=== PATIENT | female | born 1960 | race Caucasian/White ===

== ENCOUNTER 2016-09-12 08:33 | Emergency (ER) | payer BC ==
[~2016-09-12] VITALS: Ht 167.6 cm; Wt 82.7 kg
[2016-09-12 08:36] VITALS: TEMP 36.4; Ht 167.6 cm; Wt 82.7 kg
[2016-09-12] MEDS ORDERED: SODIUM CHLORIDE 0.9% 1000ML 1,000 ML IV STA (08:54)
[2016-09-12 09:09] LABS: MEAN CORPUSCULAR HEMOGLOBIN 31.8 pg (25-34); MEAN CORPUSCULAR HGB CONC 33.5 g/dl (32-36); MEAN PLATELET VOLUME 10.4 fL (7.4-10.4); PLATELET COUNT 340 K/uL (130-400); RED BLOOD COUNT 3.58 M/uL (4.2-5.4); WHITE BLOOD COUNT 14.13 K/uL (4.8-10.8)
[2016-09-12] MEDS ORDERED: ONDANSETRON INJ 2 MG/ML 2 ML VIAL IV STA (09:13)
[2016-09-12] MEDS ORDERED: MoRPHine SULFATE 4 MG/ML 1 ML CARP\\VIAL IV STA ×2 (09:13→11:41)
[2016-09-12] MEDS ORDERED: OPTIRAY 320 IV PRN (09:15)
[2016-09-12 09:16] LABS: PARTIAL THROMBOPLASTIN RATIO 0.9; PROTHROMBIN TIME (PATIENT) 10.5 SECONDS (9.0-12.0)
[2016-09-12] MEDS ORDERED: ASPI81TA28 PO (09:24)
[2016-09-12] MEDS ORDERED: CETI10TA84 PO (09:24)
[2016-09-12] MEDS ORDERED: LUTE6CAP (09:24)
[2016-09-12] MEDS ORDERED: CITA40TA4 PO (09:24)
[2016-09-12] MEDS ORDERED: PRAV20TA PO (09:24)
[2016-09-12] MEDS ORDERED: METO25TA3 PO (09:24)
[2016-09-12] MEDS ORDERED: TRAZ100T29 PO (09:24)
[2016-09-12] MEDS ORDERED: FOLI1TAB7 PO (09:24)
[2016-09-12 09:26] LABS: BUN/CREATININE RATIO 14.6 (10-20); CALCIUM 8.6 mg/dl (8.5-10.1); CREATININE 0.84 mg/dl (0.60-1.20); MAGNESIUM 2.2 mg/dl (1.8-2.4)
[2016-09-12 09:30] LABS: PHOSPHORUS 2.9 mg/dl (2.5-4.9)
[2016-09-12 09:38] LABS: COMPLETE YES; DOHLE BODIES 1+; LYMPH ABS # 2.25 K/uL (1.2-3.4); LYMPHOCYTE % 15.9 %; MYELOCYTE % 0.9 %; NEUTROPHILS % 70.8 %; TOXIC GRANULATION 1+
--- NOTE | 2016-09-12 10:33 | DIAGNOSTIC IMAGING REPORT ---
CT SCAN OF THE ABDOMEN AND PELVIS WITH IV CONTRAST CLINICAL HISTORY: Left lower quadrant abdominal pain. Hematochezia. COMPARISON STUDY: No priors. TECHNIQUE: Following the IV administration of 119 cc of Optiray 320, CT scan of the abdomen and pelvis is performed from the lung bases to the proximal femora. Images are reviewed in the axial, sagittal, and coronal planes. IV contrast was administered without complication. Automated dose control exposure was utilized. CT DOSE: 547.92 mGy.cm FINDINGS: Lung bases: The heart is normal in size and without pericardial effusion. There are scattered coronary artery calcifications. Emphysema is suspected. Lung bases are otherwise clear noting dependent atelectasis. Liver: The contrast-enhanced liver is significantly enlarged, measuring 23.5 cm in length. The liver demonstrates diffusely diminished attenuation consistent with severe hepatic steatosis. Foci of geographic sparing are present adjacent to gallbladder fossa and the right lobe. There is no intrahepatic biliary ductal dilatation. The hepatic veins and portal veins are patent. 1.9 cm and 1.1 cm hyperdense foci in the right lobe seen on images #134 and 140 may represent hemangiomas or foci of geographic sparing. Gallbladder: Unremarkable. Spleen: Normal in size and attenuation. Pancreas: Unremarkable. Adrenal glands: Unremarkable. Kidneys: The contrast enhanced kidneys demonstrate mild cortical atrophy and are without hydronephrosis. The kidneys enhance symmetrically. Abdominal vasculature: The abdominal aorta is normal in course and caliber noting moderate atherosclerotic calcification. Bowel: There is mild to moderate diverticulosis of the sigmoid colon without CT evidence of acute diverticulitis. There is a long segment of wall thickening, edema, and hyperemia involving the colon. This extends from the mid transverse colon to the distal descending colon and is typical for a nonspecific colitis. There is associated pericolonic inflammatory change and trace pericolonic fluid. There are mildly enlarged pericolonic lymph nodes. No bowel obstruction is seen. The appendix is well-visualized and normal. Peritoneum: There is no intraperitoneal free air or abdominal ascites. There is a small fat-containing umbilical hernia. Lymphadenopathy: None. Pelvic viscera: Large enhancing uterine masses are typical in appearance for fibroids. These measure up to 4.4 cm. The bladder is normal as visualized. No adnexal lesion is seen. Skeletal structures: The skeletal structures are osteopenic. There is minimal lumbosacral spondylosis. A hemitransitional right lumbosacral segment is incidentally noted. No lytic or blastic lesions are seen. IMPRESSION: 1. Findings are consistent with a nonspecific colitis involving the transverse and descending colon as above. This is likely on an infectious or inflammatory basis in this age group. Clinical correlation will be required. 2. Hepatomegaly and severe hepatic steatosis. 3. Suspect emphysema. 4. Mild to moderate sigmoid diverticulosis without CT evidence of acute acute diverticulitis. 5. There are hypervascular uterine masses measured up to 4.4 cm. These are pathologically indeterminant but typical in appearance for fibroids. 6. There are 2 hyperdense foci in the liver measuring up to 1.9 cm. These likely represent hemangiomas or geographic fatty sparing but are incomplete characterized. These are of doubtful significance if there is no cancer history. 7. Additional findings as above. Electronically signed by: Leroy Khan M.D. 09/12/2016 10:32 AM Dictated Date/Time: 09/12/2016 10:24 AM
[2016-09-12] MEDS ORDERED: OMEP20CA59 PO (11:13)
[2016-09-12] MEDS ORDERED: PRED50TA PO (11:13)
[2016-09-12] MEDS ORDERED: MoRPHine SULFATE 4 MG/ML 1 ML CARP\\VIAL ONE (11:28)
[2016-09-12 11:41] VITALS: BP 108/63; PULSE 97; O2SAT 93
--- NOTE | 2016-09-12 13:58 | EMERGENCY ROOM VISIT NOTE ---
History First contact with patient: 08:53 Chief Complaint: RECTAL BLEEDING Stated Complaint: HEAVY BLEEDING/RECTUM Nursing Triage Summary: PMH of colitis. She relates that this episode is her worst. She has been defecating "all blood". Pain is in the left lower quadrant. Feels dizzy with position changes. History of Present Illness The patient is a 55 year old female who presents to the Emergency Room with complaints of significant rectal bleeding, weakness, fatigue and lightheadedness. The patient reports a long-standing history of ulcerative colitis. She has recently been managed by [facility]. The patient reports that she has noticed blood in her stool for the past 2 weeks. For the first few days, it was bright red in appearance, and is now dark. The patient reports that she was seen at the [place] emergency department on Friday, and given a prescription for prednisone 40 mg daily for 4 days. The patient now reports worsening bleeding with worsening symptoms, including left lower quadrant pain. The patient denies any known history of diverticulosis. The patient denies any urinary symptoms, back pain, chest pain or shortness of breath. She rates her overall discomfort a 6 out of 10. Review of Systems HEENT: Denies dizziness, visual problems, hearing loss, tinnitus. Denies difficulty swallowing or oral lesions. PULMONARY: Denies cough, shortness of breath, sputum production or hemoptysis. CARDIOVASCULAR: Denies chest pain, palpitations, dyspnea on exertion, orthopnea or peripheral edema. GASTROINTESTINAL: Denies nausea or vomiting, otherwise see history of present illness. GENITOURINARY: Denies dysuria, frequency, urgency or nocturia. NEUROLOGIC: Denies history of epilepsy, CVA, TIA or chronic headaches. MUSCULOSKELETAL: Denies history of joint tenderness/swelling. SKIN: Denies rashes or lesions. PSYCHIATRIC: Denies history of depression or mental illness. ENDOCRINE: Denies history of diabetes or thyroid disorders. Past Medical/Surgical History Medical Problems: (1) Hepatic steatosis (2) Ulcerative colitis Surgical Problems: (1) No history of previous surgery Family History FH: cancer FH: diabetes mellitus FH: gallbladder disease FH: heart disease FH: hypertension FH: lung disease FH: seizures Social History Smoking Status: Former Smoker Alcohol Use: occasionally Marital Status: Occupation Status: unemployed Current/Historical Medications Scheduled Aspirin (Aspirin Ec), 81 MG PO DAILY Cetirizine (Zyrtec), 10 MG PO DAILY Citalopram (Citalopram Hydrobromide), 1 TAB PO DAILY Folic Acid (Folvite), 1 TAB PO DAILY Metoprolol Succ (Toprol Xl) (Toprol-Xl), 25 MG PO DAILY Omeprazole (Prilosec), 40 MG PO DAILY Prednisone (Prednisone), 50 MG PO DAILY Trazodone Hcl (Trazodone), 100 MG PO HS Miscellaneous Medications Lutein (Lutein) Pravastatin (Pravachol ), 20 MG PO Allergies Coded Allergies: No Known Allergies (Unverified , 09/12/16) Physical Exam Vital Signs Date Time Temp Pulse Resp B/P Pulse Ox O2 Delivery O2 Flow Rate FiO2 09/12/16 11:41 97 20 108/63 93 09/12/16 10:48 86 20 112/58 96 Room Air 09/12/16 09:19 100 20 119/65 98 Room Air 09/12/16 08:59 72 108/57 80 109/61 68 85/46 09/12/16 08:36 36.4 70 16 79/53 93 Room Air Pain Rating (0-10): 4.0 Physical Exam CONSTITUTIONAL: Healthy and well nourished. Alert and oriented X 3 with positive affect. HEENT: Normocephalic, atraumatic. Pupils equal, round and reactive. Ears and nares are clear. The patient does have mild conjunctival pallor. No scleral icterus. NECK: Full active range of motion without discomfort. No JVD or carotid bruits. RESPIRATORY: Clear to auscultation bilaterally with no wheezing, crackles, rhonchi or stridor. CARDIOVASCULAR: Regular rate and rhythm with no murmurs, rubs or gallops. GASTROINTESTINAL: Bowel sounds present in all quadrants. Abdomen is diffusely tender to palpation without rigidity, guarding or rebound. Negative CVA tenderness. No focal McBurney's point tenderness. MUSCULOSKELETAL: Full range of motion of all joints without discomfort. INTEGUMENTARY: No rash or other significant dermatologic conditions noted. HEMATOLOGIC: No ecchymosis or petechiae noted. NEUROLOGIC: No focal neurologic deficits noted. Medical Decision & Procedures ER Provider Diagnostic Interpretation: My interpretation of a CT scan of the abdomen and pelvis does not show any free air, obstruction, appendicitis, diverticulitis or other acute findings except for generalized colitis. Radiologist report is as follows: CT SCAN OF THE ABDOMEN AND PELVIS WITH IV CONTRAST CLINICAL HISTORY: Left lower quadrant abdominal pain. Hematochezia. COMPARISON STUDY: No priors. TECHNIQUE: Following the IV administration of 119 cc of Optiray 320, CT scan of the abdomen and pelvis is performed from the lung bases to the proximal femora. Images are reviewed in the axial, sagittal, and coronal planes. IV contrast was administered without complication. Automated dose control exposure was utilized. CT DOSE: 547.92 mGy.cm FINDINGS: Lung bases: The heart is normal in size and without pericardial effusion. There are scattered coronary artery calcifications. Emphysema is suspected. Lung bases are otherwise clear noting dependent atelectasis. Liver: The contrast-enhanced liver is significantly enlarged, measuring 23.5 cm in length. The liver demonstrates diffusely diminished attenuation consistent with severe hepatic steatosis. Foci of geographic sparing are present adjacent to gallbladder fossa and the right lobe. There is no intrahepatic biliary ductal dilatation. The hepatic veins and portal veins are patent. 1.9 cm and 1.1 cm hyperdense foci in the right lobe seen on images #134 and 140 may represent hemangiomas or foci of geographic sparing. Gallbladder: Unremarkable. Spleen: Normal in size and attenuation. Pancreas: Unremarkable. Adrenal glands: Unremarkable. Kidneys: The contrast enhanced kidneys demonstrate mild cortical atrophy and are without hydronephrosis. The kidneys enhance symmetrically. Abdominal vasculature: The abdominal aorta is normal in course and caliber noting moderate atherosclerotic calcification. Bowel: There is mild to moderate diverticulosis of the sigmoid colon without CT evidence of acute diverticulitis. There is a long segment of wall thickening, edema, and hyperemia involving the colon. This extends from the mid transverse colon to the distal descending colon and is typical for a nonspecific colitis. There is associated pericolonic inflammatory change and trace pericolonic fluid. There are mildly enlarged pericolonic lymph nodes. No bowel obstruction is seen. The appendix is well-visualized and normal. Peritoneum: There is no intraperitoneal free air or abdominal ascites. There is a small fat-containing umbilical hernia. Lymphadenopathy: None. Pelvic viscera: Large enhancing uterine masses are typical in appearance for fibroids. These measure up to 4.4 cm. The bladder is normal as visualized. No adnexal lesion is seen. Skeletal structures: The skeletal structures are osteopenic. There is minimal lumbosacral spondylosis. A hemitransitional right lumbosacral segment is incidentally noted. No lytic or blastic lesions are seen. IMPRESSION: 1. Findings are consistent with a nonspecific colitis involving the transverse and descending colon as above. This is likely on an infectious or inflammatory basis in this age group. Clinical correlation will be required. 2. Hepatomegaly and severe hepatic steatosis. 3. Suspect emphysema. 4. Mild to moderate sigmoid diverticulosis without CT evidence of acute acute diverticulitis. 5. There are hypervascular uterine masses measured up to 4.4 cm. These are pathologically indeterminant but typical in appearance for fibroids. 6. There are 2 hyperdense foci in the liver measuring up to 1.9 cm. These likely represent hemangiomas or geographic fatty sparing but are incomplete characterized. These are of doubtful significance if there is no cancer history. 7. Additional findings as above. Laboratory Results 09/12/16 08:50 Red Blood Count 3.58, Mean Corpuscular Volume 95.0, Mean Corpuscular Hemoglobin 31.8, Mean Corpuscular Hemoglobin Concent 33.5, Mean Platelet Volume 10.4 09/12/16 08:50 Test 09/12/16 08:50 White Blood Count 14.13 K/uL (4.8-10.8) Red Blood Count 3.58 M/uL (4.2-5.4) Hemoglobin 11.4 g/dL (12.0-16.0) Hematocrit 34.0 % (37-47) Mean Corpuscular Volume 95.0 fL (80-100) Mean Corpuscular Hemoglobin 31.8 pg (25-34) Mean Corpuscular Hemoglobin Concent 33.5 g/dl (32-36) Platelet Count 340 K/uL (130-400) Mean Platelet Volume 10.4 fL (7.4-10.4) RDW Standard Deviation 48.9 fL (36.4-46.3) RDW Coefficient of Variation 14.2 % (11.5-14.5) Neutrophils % (Manual) 70.8 % Lymphocytes % (Manual) 15.9 % Monocytes % (Manual) 12.4 % Myelocytes % 0.9 % Neutrophils # (Manual) 10.00 K/uL (1.4-6.5) Total Absolute Neutrophils 10.00 K/uL (1.4-6.5) Lymphocytes # (Manual) 2.25 K/uL (1.2-3.4) Total Absolute Lymphocytes 2.25 K/uL (1.2-3.4) Monocytes # (Manual) 1.75 K/uL (0.11-0.59) Myelocytes # 0.13 K/uL (0-0) Toxic Granulation 1+ Dohle Bodies 1+ Prothrombin Time 10.5 SECONDS (9.0-12.0) Prothromb Time International Ratio 1.0 (0.9-1.1) Activated Partial Thromboplast Time 22.3 SECONDS (21.0-31.0) Partial Thromboplastin Ratio 0.9 Anion Gap 11.0 mmol/L (3-11) Est Creatinine Clear Calc Drug Dose 83.0 ml/min Estimated GFR () 91.3 Estimated GFR (Non- 78.8 BUN/Creatinine Ratio 14.6 (10-20) Calcium Level 8.6 mg/dl (8.5-10.1) Phosphorus Level 2.9 mg/dl (2.5-4.9) Magnesium Level 2.2 mg/dl (1.8-2.4) Total Bilirubin 0.4 mg/dl (0.2-1) Direct Bilirubin 0.1 mg/dl (0-0.2) Aspartate Amino Transf (AST/SGOT) 25 U/L (15-37) Alanine Aminotransferase (ALT/SGPT) 37 U/L (12-78) Alkaline Phosphatase 97 U/L (45-117) Total Creatine Kinase 72 U/L (26-192) Total Protein 6.7 gm/dl (6.4-8.2) Albumin 3.0 gm/dl (3.4-5.0) Lipase 211 U/L (73-393) Labs were reviewed. Hemoglobin is stable at 11.4. The patient does have a leukocytosis with left shift. Partial renal profile, LFTs and lipase are otherwise normal. Medications Administered Medications (Trade) Dose Ordered Sig/Dev Route Start Time Stop Time Status Last Admin Dose Admin Sodium Chloride (Nss 1000ml) 1,000 ml @ 999 mls/hr Q1H1M STAT IV 09/12/16 08:54 09/12/16 09:54 DC 09/12/16 08:54 999 MLS/HR Morphine Sulfate (MoRPHine SULFATE INJ) 4 mg NOW STAT IV 09/12/16 09:13 09/12/16 09:14 DC 09/12/16 09:13 4 MG Ondansetron HCl (Zofran Inj) 4 mg NOW STAT IV 09/12/16 09:13 09/12/16 09:14 DC 09/12/16 09:13 4 MG Morphine Sulfate (MoRPHine SULFATE INJ) 4 mg STK-MED ONCE .ROUTE 09/12/16 11:28 09/12/16 11:30 DC 09/12/16 11:28 4 MG Procedure 1. IV hydration: The patient received a liter normal saline bolus 2. IV medications: The patient was initially administered morphine 4 mg and Zofran 4 mg IVP. She was administered an additional morphine 4 mg IVP prior to discharge. ED Course Patient history and physical exam were performed. Nurse's notes were reviewed. Vital signs were reviewed, showing a blood pressure of 79/53. The patient reports that she usually has a low pressure. She is afebrile. O2 saturation is 93% on room air. She did complain of notable abdominal discomfort. IV access was established, and labs were drawn. The patient was hydrated with a liter normal saline. She received IV medications as discussed in the previous Procedure section. Review of labs shows only a mild anemia with a hemoglobin of 11.4. Otherwise remaining labs are grossly normal. Coagulation studies are normal. I did elect to perform a CT of the abdomen and pelvis, showing no evidence for obstruction, free air or other concerning findings. The patient did report significant relief of her discomfort with the above treatment. The case was discussed with Dr. Royal, ED attending physician, who agrees with workup and planned discharge. I did call and spoke with ANITA Valencia at [facility]. She agreed that the patient needs to be seen as an urgent outpatient follow-up. She reports that the patient should have a prescription for Lealda. If she is not taking this, she should call the office for refill. She also requested that the patient be continued on prednisone. The patient is to call her office for an appointment. This information was relayed to the patient. She reports that she is currently not taking the Lealda, and will call the office for a prescription refill and appointment. In case this is an upper GI bleed, I also suggested starting her on Prilosec. She was also provided a prescription for prednisone. The patient was administered an additional dose of morphine prior to discharge, and rated her pain a 3 out of 10. The patient was happy with plan of care, and voiced understanding of all discharge instructions. Medical Decision The patient presents to the emergency department with complaint of a significant GI bleed of dark blood. It initially started out as bright red blood. This would be most suggestive of a more proximal GI bleed. The patient does have a history of ulcerative colitis. CT studies at this time are not suggestive of obstruction, perforation, appendicitis or diverticulitis. Ever nikhil studies are not suggestive of pancreatitis or hepatitis. Clinical exam does not show any surgical abdomen. She has no CVA tenderness to suggest pyelonephritis. The patient is currently hemodynamically stable and afebrile. I therefore feel that the patient is stable enough for outpatient GI management. Impression Primary Impression: GI bleed Additional Impressions: Ulcerative colitis Hepatic steatosis Departure Information Prescriptions Prednisone (Prednisone) 50 Mg Tab 50 MG PO DAILY for 4 Days, #4 TAB Prov: Ric Rioc PA 09/12/16 Omeprazole (Prilosec) 20 Mg Capcr 40 MG PO DAILY for 15 Days, #30 CAP Prov: Ric Rico PA 09/12/16 Referrals Josh Brambila (PCP) Patient Instructions [facility] Problem Qualifiers
== END 2016-09-12 11:43 | disposition home or self-care (01) ==
LOC: C.EDB 08:34
DX: K92.2 Gastrointestinal hemorrhage, unspecified (principal); K51.90 Ulcerative colitis, unspecified, without complications; K76.0 Fatty (change of) liver, not elsewhere classified; Z87.891 Personal history of nicotine dependence; Z79.82 Long term (current) use of aspirin; Z79.899 Other long term (current) drug therapy

== ENCOUNTER 2017-06-20 11:54 | Emergency (ER) | payer BC ==
[~2017-06-20] VITALS: Ht 165.1 cm; Wt 84.2 kg
[~2017-06-20 11:54] MED LIST: ASPI81TA28 PO; CETI10TA84 PO; CITA40TA4 PO; FOLI1TAB7 PO; LUTE6CAP; METO25TA3 PO; PRAV20TA PO; TRAZ100T29 PO
[2017-06-20 12:15] VITALS: TEMP 36.7; Ht 165.1 cm; Wt 84.2 kg
[2017-06-20 13:37] LABS: COMPLETE YES; EOS % 1.5 %; HEMATOCRIT 41.2 % (37-47); IG% 0.6 %; LYMPH % 36.9 %; LYMPH ABS # 2.01 K/uL (1.2-3.4); MEAN CELL VOLUME 92.6 fL (80-100); MEAN CORPUSCULAR HEMOGLOBIN 31.5 pg (25-34); MEAN PLATELET VOLUME 11.3 fL (7.4-10.4); MONO % 12.1 %; NEUT % 48.9 %; PLATELET COUNT 193 K/uL (130-400); RED BLOOD COUNT 4.45 M/uL (4.2-5.4); WHITE BLOOD COUNT 5.45 K/uL (4.8-10.8)
[2017-06-20 13:45] LABS: BUN/CREATININE RATIO 10.6 (10-20); CALCIUM 8.8 mg/dl (8.5-10.1); CREATININE 0.67 mg/dl (0.60-1.20); POTASSIUM 3.5 mmol/L (3.5-5.1)
--- NOTE | 2017-06-20 14:15 | DIAGNOSTIC IMAGING REPORT ---
CHEST 2 VIEWS ROUTINE CLINICAL HISTORY: cough x 3 days COMPARISON STUDY: No previous studies for comparison. FINDINGS: The cardiac and mediastinal contours are normal. There is no evidence of focal pulmonary consolidation. There is no evidence of failure. No pleural effusions are visualized.[ There is a linear area of scar/atelectatic changes at the left lung base. IMPRESSION: No active disease in the chest. Electronically signed by: Timbo Dhillon M.D. 06/20/2017 2:14 PM Dictated Date/Time: 06/20/2017 2:13 PM
[2017-06-20 15:21] LABS: MANUAL MICROSCOPIC REQUIRED? NO; URINE APPEARANCE CLEAR (CLEAR); URINE BILIRUBIN NEG (NEG); URINE COLOR YELLOW; URINE NITRITE NEG (NEG); URINE PH 5.5 (4.5-7.5); URINE SPECIFIC GRAVITY <= 1.005 (1.000-1.030); UROBILINOGEN NEG (NEG)
[2017-06-20 15:22] LABS: REVIEW REQ? NO
[2017-06-20] MEDS ORDERED: FLV400 PO (15:34)
[2017-06-20] MEDS ORDERED: CITA10TA4 PO (15:34)
[2017-06-20] MEDS ORDERED: MISC1CAP58 PO (15:34)
[2017-06-20] MEDS ORDERED: METO25TA56 PO (15:34)
[2017-06-20] MEDS ORDERED: PRAV40TA PO (15:34)
[2017-06-20] MEDS ORDERED: HYDR5SYP11 PO (15:43)
--- NOTE | 2017-06-20 15:44 | EMERGENCY ROOM VISIT NOTE ---
History First contact with patient: 13:02 Chief Complaint: RESPIRATORY PROBLEMS Stated Complaint: CHEST COLD,COUGH,BLOOD IN URINE,LOWER BACK PAIN Nursing Triage Summary: Pt c/o productive cough, sore throat, nasal congestions 3 days. Pt states she noticed blood in urine 3 days ago. Denies other urinary symptoms. Pain in left back. Denies hx kidney stone. History of Present Illness Patient is a 56-year-old white female with past medical history significant for hypertension, dyslipidemia, ulcerative colitis and anxiety who presents to the emergency department for evaluation of an illness over the last week. She states her symptoms actually started 1 week ago with some aching in her left low back. She initially thought that it was musculoskeletal. It isn't located in the left low back and did not radiate. She tried applying heat to the area, but the low back pain has progressively gotten worse. About 3 days ago, she came down with a "cold." She reports a sore throat, sinus and nasal congestion and a productive cough. She has been taking Mucinex during the day and NyQuil at night. She also at that time began to notice some bloody when she urinated. She denies any associated dysuria, frequency, urgency or incomplete emptying of her bladder. She denies any fever or chills. No shortness of breath. She notes she feels like she is wheezing slightly, and had some soreness in her mid chest with coughing. She was slightly nauseous yesterday but did not vomit. She did not feel well enough to eat Thanksgiving dinner. She has chronic loose bowel movements secondary to her UC, but reports that this has been stable. She denies any abdominal pain. She has not been on any steroids recently for her ulcerative colitis. She is not aware of any sick contacts. Review of Systems Review of systems as per HPI. All other systems reviewed were negative. 10 systems reviewed. Past Medical/Surgical History Medical Problems: (1) Anxiety (2) Dyslipidemia (3) GI bleed (4) GI bleeding (5) Hepatic steatosis (6) History of ulcerative colitis (7) Hypertension (8) Ulcerative colitis Surgical Problems: (1) No history of previous surgery Electronic medical records are reviewed and summarized as above/below. See Problem List. Family History FH: cancer FH: diabetes mellitus FH: gallbladder disease FH: heart disease FH: hypertension FH: lung disease FH: seizures Social History Smoking Status: Former Smoker Alcohol Use: occasionally Marital Status: Occupation Status: unemployed Current/Historical Medications Scheduled Aspirin (Aspirin Ec), 81 MG PO DAILY Cetirizine (Zyrtec), 10 MG PO DAILY Citalopram Hydrobromide (Citalopram Hydrobromide), 1 TAB PO DAILY Folic Acid (Folic Acid), 400 MCG PO DAILY Metoprolol Tartrate (Lopressor) (Lopressor), 25 MG PO BID Misc Natural Products (Lutein 20), 20 MG PO DAILY Pravastatin Sodium (Pravachol), 1 TAB PO DAILY Trazodone Hcl (Trazodone), 100 MG PO HS Scheduled PRN Hydrocodone W/ Homatropine (Hycodan 5/1.5MG 5 Ml), 10 ML PO Q4H PRN for Cough Physical Exam Vital Signs Date Time Temp Pulse Resp B/P (MAP) Pulse Ox O2 Delivery O2 Flow Rate FiO2 06/20/17 16:21 77 18 134/82 95 06/20/17 13:54 89 20 122/77 95 Room Air 06/20/17 12:15 36.7 79 19 134/79 95 Room Air Physical Exam CONSTITUTIONAL: Patient is a well-appearing 56-year-old white female who is awake and alert and in no acute distress. Her vital signs are stable. EYES: Pupils equal, round, reactive to light and accommodation. EOMs intact without nystagmus. Sclera are anicteric. ENT: Tympanic membranes intact, with normal landmarks. External canals are clear. Nasal mucosa are edematous, with clear rhinorrhea. Oropharynx is clear , no tonsillar erythema or hypertrophy. No exudate. No postnasal drip noted. Mucous membranes are moist, no lesions, tongue and gums appear normal. CARDIOVASCULAR: Regular rate and rhythm, with normal S1 and S2, no murmur or gallop or rub is heard. No carotid bruits auscultated. No JVD. Peripheral pulses easy to palpable. RESPIRATORY: Breath sounds equal and clear to auscultation without wheezes, rales, or rhonchi heard. Full and equal chest expansion without accessory muscle use or retractions. GI: Bowel sounds are present. Abdomen is soft, nontender, nondistended. No organomegaly. No pulsatile masses. No guarding or rebound. MUSCULOSKELETAL: Full range of motion of extremities x 4 with good strength. No cyanosis, edema, joint tenderness or swelling. No deformity. INTEGUMENTARY: No lesions or rash, normal skin turgor. NEUROLOGICAL: Alert, oriented, and cooperative. Cranial nerves, sensation and strength grossly intact. Pupils round, equal, and react to light, EOMs are full. LYMPH: No lymphadenopathy. Medical Decision & Procedures ER Provider Diagnostic Interpretation: CHEST 2 VIEWS ROUTINE CLINICAL HISTORY: cough x 3 days COMPARISON STUDY: No previous studies for comparison. FINDINGS: The cardiac and mediastinal contours are normal. There is no evidence of focal pulmonary consolidation. There is no evidence of failure. No pleural effusions are visualized.[ There is a linear area of scar/atelectatic changes at the left lung base. IMPRESSION: No active disease in the chest. Laboratory Results 06/20/17 12:45 Red Blood Count 4.45, Mean Corpuscular Volume 92.6, Mean Corpuscular Hemoglobin 31.5, Mean Corpuscular Hemoglobin Concent 34.0, Mean Platelet Volume 11.3, Neutrophils (%) (Auto) 48.9, Lymphocytes (%) (Auto) 36.9, Monocytes (%) (Auto) 12.1, Eosinophils (%) (Auto) 1.5, Basophils (%) (Auto) 0.0, Neutrophils # (Auto ) 2.67, Lymphocytes # (Auto) 2.01, Monocytes # (Auto) 0.66, Eosinophils # (Auto ) 0.08, Basophils # (Auto) 0.00 06/20/17 12:45 Test 06/20/17 12:30 06/20/17 12:45 Urine Color YELLOW Urine Appearance CLEAR (CLEAR) Urine pH 5.5 (4.5-7.5) Urine Specific Ione <= 1.005 (1.000-1.030) Urine Protein NEG (NEG) Urine Glucose (UA) NEG (NEG) Urine Ketones NEG (NEG) Urine Occult Blood NEG (NEG) Urine Nitrite NEG (NEG) Urine Bilirubin NEG (NEG) Urine Urobilinogen NEG (NEG) Urine Leukocyte Esterase NEG (NEG) White Blood Count 5.45 K/uL (4.8-10.8) Red Blood Count 4.45 M/uL (4.2-5.4) Hemoglobin 14.0 g/dL (12.0-16.0) Hematocrit 41.2 % (37-47) Mean Corpuscular Volume 92.6 fL (80-100) Mean Corpuscular Hemoglobin 31.5 pg (25-34) Mean Corpuscular Hemoglobin Concent 34.0 g/dl (32-36) Platelet Count 193 K/uL (130-400) Mean Platelet Volume 11.3 fL (7.4-10.4) Neutrophils (%) (Auto) 48.9 % Lymphocytes (%) (Auto) 36.9 % Monocytes (%) (Auto) 12.1 % Eosinophils (%) (Auto) 1.5 % Basophils (%) (Auto) 0.0 % Neutrophils # (Auto) 2.67 K/uL (1.4-6.5) Lymphocytes # (Auto) 2.01 K/uL (1.2-3.4) Monocytes # (Auto) 0.66 K/uL (0.11-0.59) Eosinophils # (Auto) 0.08 K/uL (0-0.5) Basophils # (Auto) 0.00 K/uL (0-0.2) RDW Standard Deviation 46.9 fL (36.4-46.3) RDW Coefficient of Variation 14.0 % (11.5-14.5) Immature Granulocyte % (Auto) 0.6 % Immature Granulocyte # (Auto) 0.03 K/uL (0.00-0.02) Anion Gap 8.0 mmol/L (3-11) Est Creatinine Clear Calc Drug Dose 101.7 ml/min Estimated GFR () 114.7 Estimated GFR (Non- 99.0 BUN/Creatinine Ratio 10.6 (10-20) Calcium Level 8.8 mg/dl (8.5-10.1) Total Bilirubin 0.4 mg/dl (0.2-1) Aspartate Amino Transf (AST/SGOT) 89 U/L (15-37) Alanine Aminotransferase (ALT/SGPT) 131 U/L (12-78) Alkaline Phosphatase 95 U/L (45-117) Total Protein 8.0 gm/dl (6.4-8.2) Albumin 4.0 gm/dl (3.4-5.0) Globulin 4.0 gm/dl (2.5-4.0) Albumin/Globulin Ratio 1.0 (0.9-2) ED Course The patient was seen and evaluated as above. She has only one prior ED record available which was reviewed. She presents the emergency department for evaluation of upper respiratory symptoms 3 days, with also noticing hematuria and left low back pain. IV lock was initiated. Laboratory studies were collected including CBC with differential, CMP and urinalysis. Chest x-ray was obtained. The patient was offered medication for discomfort, but declined. Laboratory studies noted a normal white count. H&H is 14 and 41. Platelet count is 193,000. Electrolytes are within normal limits. Renal function is normal. She has slight elevation of her AST and ALT at 89 and 131 respectively. This is a change from prior labs that were performed in August of this year at which point her transaminases were normal. Urinalysis today was cleaning the clear, without signs of infection or hematuria. Chest x-ray did not note any focal consolidation. The patient was reassessed. She was made aware of the results of her ED workup. I did discuss the elevated transaminases with her. She does have a history of fatty liver disease. Upon review of her supplemental sheet, she did also admits to drinking 6 beers daily, which could also cause elevation of her transaminases. She is not having any right upper quadrant symptoms however, and this was felt to be an incidental finding, however she was encouraged to have her LFTs rechecked by her PCP to ensure improvement or stability. With regards to her symptoms today, she has a mild upper respiratory symptoms with a negative chest x-ray. I suspect her upper respiratory illness is viral in nature. She has some left low back pain, which appears to be musculoskeletal, as she does not have any clear urologic source for her symptoms. Certainly UTI , pyelonephritis and kidney stone were entertained, however felt to be less likely given the findings on urinalysis. Supportive care measures were discussed. Patient was given an albuterol inhaler with a spacer in the emergency department and instructed on its use. She was also given a prescription for Hycodan to use for nighttime cough. She can continue the other [id number] medications that she has been using and was encouraged to follow-up with her primary care provider for further care and management particularly if her symptoms are not improving. The patient was discharged home in good condition with her . Medical Decision See Emergency Department course. Medication Reconcilliation Current Medication List: was personally reviewed by me Blood Pressure Screening Patient's blood pressure: Normal blood pressure Blood pressure disposition: Did not require urgent referral Impression Primary Impression: URI (upper respiratory infection) Additional Impression: Left low back pain Departure Information Prescriptions Hydrocodone W/ Homatropine (HYCODAN 5/1.5MG 5 ML) 1 Syp Syp 10 ML PO Q4H Y for Cough, #200 ML For Initial Treatment Prov: Nya Wetzel PA 06/20/17 Referrals Josh Brambila (PCP) Patient Instructions My [facility] Additional Instructions Acetaminophen(Tylenol) may be used for fever or pain. Use 1000mg every six hours as needed. Avoid using more than 3000mg in a 24 hour period. (AND/OR) Ibuprofen(Motrin, Advil) may be used for fever or pain. Use 600mg every six hours as needed. Take with food. Avoid using more than 2400mg in a 24 hour period. Do not use 2400mg per day for more than three consecutive days without physician direction. Prolonged inappropriate use can lead to stomach upset or ulcers. Afrin nasal spray: 2-3 sprays to each nostril twice daily as needed for congestion. Do not use for more than 3-4 days because it can lead to worsening rebound congestion. Pseudoephedrine(Sudaphed): 30-60mg every 6 hours as needed for nasal congestion. Do not take this with other stimulant products or supplements. Guaifenesin (Mucinex) : Take 1200 mg every 12 hours as needed for nasal/chest congestion, to help thin secretions. Albuterol Inhaler: Take 2 puffs every 4 hours as needed for cough/wheezing/ shortness of breath for the next 5-7 days, then may use as needed. Hycodan cough syrup: use 5-10 mL's every six hours only as needed for severe cough. It is best for use at night since it will cause sedation. This is a narcotic medication. Avoid alcohol, operating machinery or dangerous equipment , working on ladders or roofs, DRIVING, or situations where being under the influence may be dangerous. It is recommended to use an [id number] stool softener such as Colace, 100mg twice daily while taking this medication to avoid constipation. Rest and drink plenty of fluids. Controlling your fever with Tylenol and Ibuprofen as above will make you feel better. Wash your hands after nose blowing, sneezing, or coughing. Most germs are spread through contact, therefore improper hygiene may result in your close contacts and loved ones becoming ill just like you. Continue current medications. Return to the ER for severe headache, neck stiffness, chest pain, difficulty breathing, fevers, vomiting, worsening of your condition, or as needed. Follow up with your primary physician this week for a recheck of your current condition. You had very slight elevation of your liver function studies today (AST and ALT) . These should be rechecked by your primary care provider. Problem Qualifiers
[2017-06-20] MEDS ORDERED: ALBUTEROL HFA 8 GM INHALER INH ONE (15:45)
[2017-06-20 16:21] VITALS: BP 134/82; PULSE 77; O2SAT 95
== END 2017-06-20 16:23 | disposition home or self-care (01) ==
LOC: C.EDB 11:56
DX: J06.9 Acute upper respiratory infection, unspecified (principal); M54.5 Low back pain; I10 Essential (primary) hypertension; E78.5 Hyperlipidemia, unspecified; K51.90 Ulcerative colitis, unspecified, without complications; F41.9 Anxiety disorder, unspecified; Z79.82 Long term (current) use of aspirin; Z79.899 Other long term (current) drug therapy; Z87.891 Personal history of nicotine dependence; Z82.0 Family history of epilepsy and other diseases of the nervous system; Z82.49 Family history of ischemic heart disease and other diseases of the circulatory system; Z83.3 Family history of diabetes mellitus; Z83.6 Family history of other diseases of the respiratory system; Z83.79 Family history of other diseases of the digestive system